=== PATIENT | male | born 1980 | race Caucasian/White ===

== ENCOUNTER 2018-05-18 00:26 | Emergency (ER) | payer BC, OTHER ==
[2018-05-18] MEDS ORDERED: 0.9 % SODIUM CHLORIDE 1,000 ML BAG IV ONE (00:32)
[2018-05-18] MEDS ORDERED: ONDANSETRON HCL IV 4 MG/2 ML VIAL IVP ONE (00:32)
[2018-05-18] MEDS ORDERED: MECLIZINE 25 MG TABLET PO ONE (00:33)
--- NOTE | 2018-05-18 00:39 | Emergency Department Record ---
History of Present Illness - General Chief Complaint: Dizziness Stated Complaint: DIZZINESS Time Seen by Provider: 05/18/18 00:32 Source: Patient Mode of Arrival: Ambulatory Limitations: No limitations - History of Present Illness Initial Comments: 37 yo male presents with dizziness. The patient had been asleep for about two hours. He awoke with dizziness, nausea, feeling lightheaded and room spinning. No history of the same in the past. The symptoms worsen with head movement and looking around. No headache. No vision changes. He felt sweaty as well. He felt like his heart was racing and fell a little tight in the chest. No cough, No shortness of breath. He has IBS on Prednisone. His stools have been normal. No recent illness. He is a non smoker. Occasional alcohol. MD Complaint: Dizziness, Lightheadedness -: Hour(s) (1) Timing: Awoke with symptoms Description: Difficulty walking, Lightheadedness, Nausea, Off-balance, "Room spinning", Sense of movement History of Same: No Severity: Severe Improves With: Remaining still Worsens With: Movement Associated Symptoms: Chest pain, Diaphoresis, Malaise, Weakness - [place]idel[place] Coma Scale Eye Response: (4) Open spontaneously Motor Response: (6) Obeys commands Verbal Response: (5) Oriented Fidelia Total: 15 - Symptoms of Stroke Symptoms of stroke: Dizziness - Related Data Home Medications Medication Instructions Recorded Confirmed Last Taken Prednisone 5 mg PO DAILY 05/18/18 05/18/18 Unknown Previous Rx's Medication Instructions Recorded Meclizine HCl [Antivert] 25 mg PO Q8H #15 tablet 05/18/18 Ondansetron [Zofran Odt] 4 mg PO Q8H #15 tab.rapdis 05/18/18 Allergies Allergy/AdvReac Type Severity Reaction Status Date / Time No Known Drug Allergies Allergy Verified 05/18/18 00:27 Review of Systems Constitutional: Denies: Chills, Fever, Malaise, Weakness Eyes: Denies: Eye discharge, Eye pain, Photophobia, Vision change ENT: Denies: Congestion, Ear pain, Throat pain Respiratory: Denies: Cough, Dyspnea, Hemoptysis, Wheezes Cardiovascular: Reports: Chest pain, Palpitations. Denies: Dyspnea on exertion , Edema, Syncope Endocrine: Denies: Fatigue, Polydipsia, Polyuria Gastrointestinal: Reports: Nausea. Denies: Abdominal pain, Diarrhea Genitourinary: Denies: Dysuria, Frequency, Hematuria Musculoskeletal: Denies: Arthralgia, Back pain, Myalgia, Neck pain Skin: Denies: Bruising, Change in color, Rash Neurological: Reports: Vertigo. Denies: Confusion, Headache, Numbness, Paresthesias, Tingling, Tremors, Weakness Psychiatric: Denies: Anxiety Hematological/Lymphatic: Denies: Blood Clots, Easy bleeding, Easy bruising, Swollen glands Physical Exam - General General Appearance: Alert, Oriented x3, Cooperative, No acute distress Limitations: No limitations - Head Head exam: Atraumatic, Normocephalic, Normal inspection - Eye Eye exam: Normal appearance, PERRL, Periorbital swelling. negative: Conjunctival injection, Nystagmus, Scleral icterus - ENT ENT exam: Normal exam, Mucous membranes moist, Normal orophraynx Ear exam: Normal external inspection Nasal Exam: Normal inspection Mouth exam: Normal external inspection - Neck Neck exam: Normal inspection, Full ROM. negative: Lymphadenopathy, Tenderness - Respiratory Respiratory exam: Normal lung sounds bilaterally. negative: Chest wall tenderness, Decreased breath sounds, Rhonchi, Stridor, Wheezes - Cardiovascular Cardiovascular Exam: Normal rhythm, Normal heart sounds, Tachycardia Peripheral Pulses: 2+: Radial (R), Radial (L) - GI/Abdominal GI/Abdominal exam: Soft. negative: Distended, Guarding, Rebound, Rigid, Tenderness - Rectal Rectal exam: Deferred - exam: Deferred - Extremities Extremities exam: Normal inspection, Full ROM, Normal capillary refill. negative: Pedal edema, Tenderness - Back Back exam: Denies: CVA tenderness (R), CVA tenderness (L) - Neurological Neurological exam: Alert, CN II-XII intact, Oriented X3, Other (Normal FTN, Normal ROBE, No PND, clear speech, symmetric facial expressions, no ataxia). negative: Altered, Motor sensory deficit - Psychiatric Psychiatric exam: Normal affect, Normal mood - Skin Skin exam: Dry, Intact, Normal color, Warm Course - Reevaluation(s) Reevaluation #1: EKG #1: 0024 Rate: 119 Rhythm: sinus tachycardia [place]: Normal Intervals: normal ST segments: normal Prior: none 05/18/18 00:36 The feeling in the chest had resolved. The room spinning and dizziness persist 05/18/18 00:54 HEART Score: 0-3 Low Risk D-Dimer ordered given tachycardia, atypical chest discomfort, S in I, Q in III, inverted T in III although this is non specific. No traditional cardiac risk factors. No history of DVT/PE risk factors. 05/18/18 01:06 The CBC is normal The CMP no significant acute changes The D-dimer is normal 05/18/18 01:08 [facility] report is negative. Normal. 05/18/18 01:11 Troponin is normal HR now improved to 76. BP improved to 140/93 Patient is relaxed and improved already. Resting comfortably. 05/18/18 01:12 05/18/18 02:16 The patient reports he continues to feel much better. No current nausea. The dizzy feeling is nearly resolved. 05/18/18 04:00 Repeat troponin is negative DC home with home care instructions, reasons to return to the ED, follow up instructions and referral for atypical chest pain that has low risk characteristics. 05/18/18 04:14 We discussed the results of the tests and questions were answered at the time of discharge. The patient is doing well and is comfortable with DC. DC vitals were reviewed. We discussed at length reasons to immediately return to the ED as well as close follow up. The patient will call the PCP for close follow up of this ED visit to review this visit and the tests performed BP 112/70. The patient denies and dizziness or nausea at DC. He was referred for outpatient follow up. Medical Decision Making - Lab Data Result diagrams: 05/18/18 00:30 05/18/18 00:30 Disposition Disposition: Discharge Clinical Impression: Vertigo, Chest pain, atypical Disposition: Home, Self-Care Condition: (1) Good Instructions: Chest Pain (ED), Vertigo (ED), Dizziness (ED) Additional Instructions: Take the prescriptions provided today as directed. Call your family doctor. Call to schedule the next available appointment for a recheck. Return to ED if your symptoms worsen or if you have any new concerns. Review the final Emergency Record and test results with your doctor on follow up Prescriptions: Meclizine HCl [Antivert] 25 mg PO Q8H #15 tablet Ondansetron [Zofran Odt] 4 mg PO Q8H #15 tab.rapdis Referrals: ROBBY GRANGER M.D. [MEDICAL DOCTOR] - [facility] [Provider Group] Forms: Patient Portal Access Time of Disposition: 04:03 Quality - Quality Measures Quality Measures: N/A - Blood Pressure Screening Does Patient Have Any of the Following: No Blood Pressure Classification: Hypertensive Reading Systolic Measurement: 181 Diastolic Measurement: 120 Screening for High Blood Pressure: < Pre-Hypertensive BP, F/U Documented > [ [id number]] Pre-Hypertensive Follow-up Interventions: Referral to alternative/primary care provider.
[2018-05-18 00:40] LABS: BASO % 0.4 % (0-6); EOS % 0.5 % (0-6); GRAN % 78.3 % (47-80); HEMATOCRIT 45.3 % (42.0-52.0); HEMOGLOBIN 16.1 gm/dl (14.0-18.0); LYMPH % 14.5 % (16-45); MEAN CELL VOLUME 99.8 fl (81-97); MEAN CORPUSCULAR HEMOGLOBIN 35.5 pg (27-33); MEAN CORPUSCULAR HGB CONC 35.5 g/dl (32-36); MEAN PLATELET VOLUME 8.3 fl (7.4-10.4); MONO % 6.3 % (0-9); PLATELET COUNT 355 K/uL (130-400); RED BLOOD COUNT 4.54 M/uL (4.40-5.70); RED CELL DISTRIBUTION WIDTH 13.2 % (11.5-14.5); WHITE BLOOD COUNT W/O DIFF 10.6 K/uL (4.2-12.2)
[2018-05-18 00:53] LABS: PROTHROMBIN TIME (PATIENT) 10.1 SECONDS (9.5-12.1)
[2018-05-18 00:55] LABS: BLOOD UREA NITROGEN 15 mg/dL (6-20); CREATININE 0.9 mg/dL (0.7-1.2); EST GLOMERULAR FILTRATION RATE > 60 mL/min
[2018-05-18 00:56] LABS: TOTAL PROTEIN 7.9 g/dL (6.6-8.7)
[2018-05-18 00:58] LABS: GLUCOSE,RANDOM 155 mg/dL (74-109)
[2018-05-18 01:00] LABS: ALT/SGPT 29 U/L (<41)
[2018-05-18 01:01] LABS: ALB/GLOB RATIO 1.5 (1.1-1.8); ALBUMIN 4.8 g/dL (4.0-5.0); ALKALINE PHOSPHATASE 66 U/L (40-129); AST/SGOT 30 U/L (10.0-50.0)
[2018-05-18] MEDS ORDERED: PROMETHAZINE HCL 12.5 MG in 0.9 % SODIUM CHLORIDE 100ML 100 ML IVPB ONE (01:29)
[2018-05-18] MEDS ORDERED: 0.9 % SODIUM CHLORIDE 1000ML 1,000 ML IV ONE (01:37)
--- NOTE | 2018-05-20 13:34 | CT SCAN REPORT ---
EXAM: CT SCAN OF THE BRAIN WITHOUT CONTRAST HISTORY: HEADACHE, DIZZINESS, AND NAUSEA. TECHNIQUE: Standard CT imaging of the brain was performed without contrast. Comparison: None. FINDINGS: The ventricles and subarachnoid spaces are normal. There is no mass , mass effect, intracranial hemorrhage, visible acute infarct, or abnormal extraaxial fluid. The skull is intact. The orbits, sinuses, and mastoids are normal. IMPRESSION: NEGATIVE NONCONTRAST CT SCAN OF THE BRAIN. JOB NUMBER: [id number] MTDD
== END 2018-05-18 04:20 | disposition home or self-care (01) ==
LOC: ER 00:26
DX: R42 Dizziness and giddiness (principal); R07.89 Other chest pain; R51 Headache; R11.0 Nausea; R26.2 Difficulty in walking, not elsewhere classified
CPT/HCPCS: 99284 ×2; 96365; 96375; 96361; 85025; 85730; 85610; 80053; 84484; 85379; 70450; 93005; 93010; G0480; J2405; 80320; J2550; J7030